=== PATIENT | male | born 1980 | race African-American/Black ===

== ENCOUNTER 2021-04-16 17:34 | Emergency (ER) | payer OTHER ==
[~2021-04-16] VITALS: Ht 175.3 cm; Wt 80.0 kg
[2021-04-16 17:40] VITALS: BP 130/62
== END 2021-04-16 21:06 | disposition home or self-care (01) ==
LOC: ER 17:34
DX: Z77.098 Contact with and (suspected) exposure to other hazardous, chiefly nonmedicinal, chemicals (principal); Y92.9 Unspecified place or not applicable; R07.9 Chest pain, unspecified
CPT/HCPCS: 93005; 99283